=== PATIENT | female | born 1960 | race Two or more races ===

== ENCOUNTER 2016-08-05 05:34 | Inpatient (IN) | payer BC ==
[2016-08-05] VITALS (12 sets, daily range): BP systolic 117–152; BP diastolic 67–97
[~2016-08-05] VITALS: Ht 170.2 cm; Wt 68.7 kg
[2016-08-05 06:43] LABS: CALCIUM, SERUM 9.4 mg/dL (8.5-10.1); CREATININE 0.8 mg/dL (0.6-1.3); POTASSIUM 4.7 mmol/L (3.5-5.1)
[2016-08-05 06:44] LABS: BASOPHILS # (AUTO) 0.1 /CMM (0.0-0.2); BASOPHILS % (AUTO) 0.5 % (0.0-2.0); DIFF TOTAL % 100 %; EOSINOPHILS # (AUTO) 0.2 /CMM (0.0-0.7); HEMATOCRIT 42 % (33-45); HEMOGLOBIN 14.2 g/dL (11.5-14.8); LYMPHOCYTES % (AUTO) 35.3 % (20.0-44.0); MEAN CORPUSCULAR HEMOGLOBIN 29 PG (26.0-33.0); MEAN CORPUSCULAR HGB CONC 34 g/dl (31.0-36.0); MEAN CORPUSCULAR VOLUME 87 fL (82-100); MONOCYTES # (AUTO) 0.8 /CMM (0.1-1.30); MONOCYTES % (AUTO) 7.5 % (2.0-12.0); NEUTROPHILS # (AUTO) 6.1 /CMM (1.8-8.9); NEUTROPHILS % (AUTO) 54.7 % (43.0-81.0); PLATELET COUNT (AUTO) 258 /CMM (150-450); RED BLOOD CELL COUNT(AUTO) 4.87 MIL/uL (4.0-5.2); WHITE BLOOD COUNT (AUTO) 11.2 K/uL (4.3-11.0)
[2016-08-05 06:49] LABS: BILIRUBIN,TOTAL 0.3 mg/dL (0.2-1.0)
[2016-08-05 06:57] LABS: INR 0.94 (0.87-1.13); PROTHROMBIN TIME 10.2 SECS (9.5-12.7)
[2016-08-05] MEDS ORDERED: ROCURONIUM BROMIDE 50 MG/5 ML IV ONE (07:03)
[2016-08-05] MEDS ORDERED: FENTANYL PF 100MCG/2ML AMPUL IV ONE (07:03)
[2016-08-05] MEDS ORDERED: MIDAZOLAM HCL 2 MG/2ML VIAL IV ONE (07:03)
[2016-08-05] MEDS ORDERED: SULFANILAMIDE VAG CR 120 GM TUBE VG ONE (07:12)
[2016-08-05] MEDS ORDERED: LIDOCAINE HCL/PF 1% 30 ML SDV ONE (07:12)
[2016-08-05] MEDS ORDERED: BUPIVACAINE MPF W/EPI 0.25% 30 ML VIAL ONE (07:12)
[2016-08-05] MEDS ORDERED: IV NS 0.9% 1,000 ML ONE (09:28)
[2016-08-05] MEDS ORDERED: HYDROMORPHONE 1 MG/1 ML DISP.SYRIN ONE (09:40)
[2016-08-05] MEDS ORDERED: DOCUSATE SODIUM 100 MG CAPSULE PO ONE (10:30)
[2016-08-05] MEDS ORDERED: ACETAMINOPHEN 325 MG TABLET PO PRN (10:30)
[2016-08-05] MEDS ORDERED: KETOROLAC TROMETHAMINE 15 MG/ML VIAL IV SCH (11:00)
[2016-08-05] MEDS: KETOROLAC TROMETHAMINE INJ 30 MG/ML VIAL IV SCH ×2 (11:21→23:44)
[2016-08-05] MEDS ORDERED: CHLO15MO2 MM (12:12)
[2016-08-05] MEDS ORDERED: LISI10TA5 PO (12:12)
[2016-08-05] MEDS ORDERED: METF850T2 PO (12:12)
[2016-08-05] MEDS ORDERED: GLIP10TA11 PO (12:12)
[2016-08-05] MEDS: glipiZIDE 10 MG TABLET PO SCH (13:52)
[2016-08-05] MEDS: LISINOPRIL (10MG) 10 MG TABLET PO SCH (13:52)
[2016-08-05] MEDS: METFORMIN 850 MG TABLET PO SCH ×2 (13:52→17:36)
[2016-08-05] MEDS ORDERED: DEXTROSE 50%-WATER 50 ML DISP.SYRIN IV PRN ×2 (15:00→18:30)
[2016-08-05] MEDS ORDERED: SECONDARY IV SET 1 EA INFUS.SET MC ONE (15:23)
[2016-08-05] MEDS: ANCEF 1 GM/50 ML D5W IV SCH ×4 (15:35→23:43)
[2016-08-05] MEDS ORDERED: IV NS 0.9% 250 ML IV ONE (15:37)
[2016-08-05] MEDS ORDERED: IV SET PRIMARY PUMP SET 1 EA INFUS.SET MC ONE (15:38)
[2016-08-05] MEDS ORDERED: BLOOD SUGAR DIAGNOSTIC 1 EACH STRIP IN SCH (17:30)
[2016-08-05] MEDS ORDERED: INSULIN REGULAR, HUMAN 100 UNIT/ML 3 ML VIAL SQ SCH (17:30)
[2016-08-05] MEDS: CHLORHEXIDINE GLUCONATE 15 ML UDC MM SCH (17:36)
[2016-08-05] MEDS ORDERED: INSULIN REGULAR, HUMAN 100 UNIT/ML 3 ML VIAL SQ PRN (18:30)
[2016-08-05] MEDS: BLOOD SUGAR DIAGNOSTIC 1 EACH STRIP IN SCH ×2 (18:30→22:00)
[2016-08-06] MEDS: BLOOD SUGAR DIAGNOSTIC 1 EACH STRIP IN SCH ×3 (07:02→16:34)
[2016-08-06 08:00] VITALS: BP 109/65
[2016-08-06] MEDS: glipiZIDE 10 MG TABLET PO SCH (08:23)
[2016-08-06] MEDS: METFORMIN 850 MG TABLET PO SCH ×3 (08:23→16:11)
[2016-08-06] MEDS: CHLORHEXIDINE GLUCONATE 15 ML UDC MM SCH ×2 (08:23→16:11)
[2016-08-06 09:00] VITALS: BP 99/50
[2016-08-06] MEDS: LISINOPRIL (10MG) 10 MG TABLET PO SCH (09:00)
[2016-08-06] MEDS: KETOROLAC TROMETHAMINE INJ 30 MG/ML VIAL IV SCH (11:39)
== END 2016-08-06 17:15 | disposition home or self-care (01) | DRG 748 ==
LOC: DS 05:34 → MED 05:39
PROVIDERS: ADMIT Obstetrics & Gynecology; ATTEND Obstetrics & Gynecology
PROC: 0JQC0ZZ Repair Pelvic Region Subcutaneous Tissue and Fascia, Open Approach (ICD-10-PCS; principal; 2016-08-05 07:00)
DX: N81.10 Cystocele, unspecified (principal); R32 Unspecified urinary incontinence; N81.6 Rectocele
CPT/HCPCS: 36415; 80053-TC; 82962-TC; 84703-TC; 85025-TC; 85610-TC; 86850-TC; 87081-TC; 88305-TC; J0690; J1170; J1815; J1885; J2250; J3010; J3490; J7030; J7050; J7060; Z7610